=== PATIENT | male | born 1935 | race Hispanic/Latino ===

== ENCOUNTER 2016-09-26 16:34 | Outpatient (CLI) | payer MEDICARE, OTHER ==
--- NOTE | 2016-09-27 10:25 | XRay Report ---
LUMBAR SPINE WITH OBLIQUES AND FLEXION-EXTENSION SEVEN VIEWS: 09/26/16 16:34:00 CLINICAL: Lumbar stenosis with neurogenic claudication. FINDINGS: Levoscoliosis centered at L3-4. Grade I L2-3 retrolisthesis is identified in neutral as well as flexed and extended positions. On the AP view, grade I right lateral listhesis at L3-4. Disc space narrowing with anterior-posterior osteophytes and endplate sclerosis at L2-3 and L1-2. Mild anterior T12 wedge compression fracture with no fracture lines identified. Large lateral osteophytes at T12-L1 and on the left at L2-3, L3-4 and L4-5. Severe multilevel bilateral neural foraminal stenosis on oblique views. Multilevel facet joint sclerosis. There is an IVC filter. Mild calcification of the abdominal aorta and iliac arteries. IMPRESSION: Scoliosis and extensive multilevel degenerative disc disease.Grade I L2-3 retrolisthesis with no instability on flexion and extension. Grade I right lateral listhesis at L3-4. Extensive multilevel facet joint arthropathy and multilevel neural foraminal stenosis. A probably chronic T12 anterior wedge compression fracture.
--- NOTE | 2016-09-28 10:51 | Magnetic Resonance Report ---
MRI LUMBAR SPINE WITHOUT CONTRAST: 09/26/16 CLINICAL: Lumbar Stenosis. COMPARISON: 12/06/13 CT lumbar spine TECHNIQUE: Sagittal and axial T1 and T2, and sagittal STIR sequences on a 1.5 Juliet magnet without contrast. FINDINGS: Grade I L2-3 retrolisthesis and grade I L5-S1 retrolisthesis. Status post midline posterior decompression and laminectomy from L1 to through L4. The conus medullaris is normal and terminates at L1. L1-2: Degeneration of the disc and mild circumferential disc bulge. Large anterior osteophyte and minimal posterior osteophyte. Irregularity of the inferior L1 and superior L2 endplates with mild Modic signal changes. Moderate left and mild right neural foraminal stenosis. L2-3: Degeneration of the disc with narrowing of the disc space and large anterior osteophyte. Grade I L2-3 retrolisthesis. Bilateral facet hypertrophy. Marked right neural foraminal stenosis and moderate left neural foraminal stenosis secondary to osteophytes and facet hypertrophy. L3-4: Moderate circumferential disc bulge. Bilateral facet hypertrophy and marked bilateral neural foraminal stenosis secondary to facet hypertrophy and osteophytes. L4-5: Degeneration of the disc and a small posterior central osteophyte. Bilateral facet hypertrophy and marked bilateral neural foraminal stenosis secondary to facet hypertrophy and osteophytes. L5-S1: Mild circumferential disc bulge. Bilateral facet hypertrophy and marked bilateral neural foraminal stenosis secondary to facet hypertrophy and osteophytes. IMPRESSION: 1. Status post midline posterior decompression and laminectomy from L1 to through L4. Minimal postsurgical scar. 2. Multilevel neural foraminal stenosis secondary to facet hypertrophy and osteophytes. 3. No central canal stenosis.
== END 2016-09-26 16:35 | disposition home or self-care (01) ==
LOC: MRI 16:34
PROVIDERS: ATTEND Neurological Surgery
DX: M48.06 Spinal stenosis, lumbar region (principal); M48.54XA Collapsed vertebra, not elsewhere classified, thoracic region, initial encounter for fracture; M25.78 Osteophyte, vertebrae; I73.9 Peripheral vascular disease, unspecified; M51.36 Other intervertebral disc degeneration, lumbar region; M41.86 Other forms of scoliosis, lumbar region; M12.88 Other specific arthropathies, not elsewhere classified, other specified site; I10 Essential (primary) hypertension; E78.00 Pure hypercholesterolemia, unspecified; F32.9 Major depressive disorder, single episode, unspecified; D64.9 Anemia, unspecified
CPT/HCPCS: 36415; 72114; 72148; 82565; 84520

== ENCOUNTER 2019-04-11 09:55 | Outpatient (CLI) | payer MEDICARE, OTHER ==
[2019-04-11 10:48] LABS: Basophils # (Auto) 0.1 K/mm3 (0.0-0.1); Basophils % (Auto) 0.8 % (0.0-1.8); Eosinophils # (Auto) 0.7 K/mm3 (0.0-0.4); Eosinophils % (Auto) 8.3 % (0.0-4.3); Hematocrit 33.3 % (35.5-45.6); Lymphocytes # (Auto) 2.2 K/mm3 (1.2-5.4); Lymphocytes % (Auto) 26.9 % (13.4-35.0); Mean Corpuscular HGB Conc 33 % (32-34); Mean Corpuscular Volume 97 fl (84-94); Monocytes # (Auto) 0.8 K/mm3 (0.0-0.8); Monocytes % (Auto) 9.8 % (0.0-7.3); Platelet Count 297 K/mm3 (140-440); Red Blood Count 3.42 M/mm3 (3.65-5.03); Red Cell Distribution Width 15.2 % (13.2-15.2)
[2019-04-11 11:00] LABS: INR 1.81 (0.87-1.13); Partial Thromboplastin Time 38.7 Sec. (24.2-36.6)
[2019-04-11 11:12] LABS: Albumin 3.7 g/dL (3.9-5); Calcium 9.1 mg/dL (8.4-10.2)
--- NOTE | 2019-04-11 11:25 | XRay Report ---
CHEST 2 VIEWS INDICATION: Z01.810 ENCOUNTER FOR PREPROCEDURAL CARDIOVASCULAR EXAM. COMPARISON: None FINDINGS: Support devices: Thoracic stimulator device terminates near the level of T8. Heart: Within normal limits. Lungs/pleura: No acute air space or interstitial disease. No pneumothorax. Additional findings: None. IMPRESSION: No acute findings. Signer Name: Sridhar Hi Jr, MD Signed: 04/11/2019 11:21 AM Workstation Name: [id number]
[2019-04-14 11:11] LABS: Vitamin D, 25-OH, D2 36 ng/mL
== END 2019-04-11 09:56 | disposition home or self-care (01) ==
LOC: XRAY 09:55
PROVIDERS: ATTEND Internal Medicine
DX: Z01.810 Encounter for preprocedural cardiovascular examination (principal); R79.1 Abnormal coagulation profile
CPT/HCPCS: 36415; 71046; 80053; 82306; 82607; 85025; 85610; 85730

== ENCOUNTER 2019-08-18 10:40 | Outpatient (CLI) | payer MEDICARE, OTHER ==
[2019-08-18 11:17] LABS: Basophils # (Auto) 0.1 K/mm3 (0.0-0.1); Basophils % (Auto) 0.6 % (0.0-1.8); Eosinophils # (Auto) 0.4 K/mm3 (0.0-0.4); Eosinophils % (Auto) 4.4 % (0.0-4.3); Hematocrit 47.1 % (35.5-45.6); Hemoglobin 15.5 gm/dl (11.8-15.2); Lymphocytes # (Auto) 2.3 K/mm3 (1.2-5.4); Mean Corpuscular HGB Conc 33 % (32-34); Mean Corpuscular Volume 99 fl (84-94); Monocytes # (Auto) 0.6 K/mm3 (0.0-0.8); Monocytes % (Auto) 7.4 % (0.0-7.3); Platelet Count 258 K/mm3 (140-440); Red Blood Count 4.76 M/mm3 (3.65-5.03); Red Cell Distribution Width 14.8 % (13.2-15.2)
[2019-08-18 11:27] LABS: INR 1.87 (0.87-1.13)
[2019-08-18 11:28] LABS: Partial Thromboplastin Time 35.1 Sec. (24.2-36.6)
--- NOTE | 2019-08-18 11:46 | XRay Report ---
CHEST 2 VIEWS INDICATION / CLINICAL INFORMATION: ENCOUNTER FOR PREPROCEDURAL CARDIOVASCULAR EXAMINATION. COMPARISON: 04/11/2019 FINDINGS: SUPPORT DEVICES: None. HEART / MEDIASTINUM: No significant abnormality. LUNGS / PLEURA: No significant pulmonary or pleural abnormality. No pneumothorax. ADDITIONAL FINDINGS: No significant additional findings. IMPRESSION: 1. No acute findings. Signer Name: Coy Steve MD Signed: 08/18/2019 11:42 AM Workstation Name: [id number]
[2019-08-18 11:52] LABS: Calcium 9.9 mg/dL (8.4-10.2); Chol/HDL Ratio 3.25 %
== END 2019-08-18 10:41 | disposition home or self-care (01) ==
LOC: XRAY 10:40
PROVIDERS: ATTEND Internal Medicine
DX: Z01.810 Encounter for preprocedural cardiovascular examination (principal); I26.99 Other pulmonary embolism without acute cor pulmonale
CPT/HCPCS: 36415; 71046; 80053; 80061; 83036; 84443; 85025; 85610; 85730

== ENCOUNTER 2019-10-03 10:58 | Outpatient (CLI) | payer MEDICARE, OTHER ==
--- NOTE | 2019-10-07 17:34 | Mammography Report ---
DEXA BONE DENSITY SCAN INDICATION / CLINICAL INFORMATION: DISC DEGENERATION. 83 years Male COMPARISON: None available. LUMBAR SPINE, L1-L4: - Bone mineral density (BMD) = 1.442 g/cm2. - T-score = 3.2 - Z-score = 4.4 Spine density may be artificially elevated by degenerative sclerosis. LEFT HIP, NECK : - Bone mineral density (BMD) = 0.678 g/cm2. - T-score = -1.9 - Z-score = -0.3 Change (%) since most recent prior (if available): None available. 10-YEAR FRACTURE RISK (FRAX) (%) based on LEFT FEMUR - Major Osteoporotic Fracture / Hip Fracture: 7.9% / 3.1% IMPRESSION: 1. WHO Classification: Osteopenia. Fracture Risk: Increased. BMD Reporting Guidelines (ISCD, 2015) BMD Reporting in Postmenopausal Women and in Men Age 50 and Older - T-scores are preferred. - The WHO densitometric classification is applicable. BMD Reporting in Females Prior to Menopause and in Males Younger Than Age 50 - Z-scores, not T-scores, are preferred. This is particularly important in children. - A Z-score of -2.0 or lower is defined as below the expected range for age, and a Z-score above -2.0 is within the expected range for age. - Osteoporosis cannot be diagnosed in men under age 50 on the basis of BMD alone. - The WHO diagnostic criteria may be applied to women in the menopausal transition. http://www.iscd.org/official-positions/6034-rlal-qwvemqyp-positions-adult/ Signer Name: Mc Rosales MD Signed: 10/07/2019 5:29 PM Workstation Name: [email or web address]
== END 2019-10-03 10:59 | disposition home or self-care (01) ==
LOC: MAMMO 10:58
PROVIDERS: ATTEND Internal Medicine
DX: M51.36 Other intervertebral disc degeneration, lumbar region (principal); M85.88 Other specified disorders of bone density and structure, other site
CPT/HCPCS: 77080

== ENCOUNTER 2020-02-01 09:38 | Outpatient (CLI) | payer MEDICARE, OTHER ==
[2020-02-01 10:44] LABS: Basophils % (Auto) 0.5 % (0.0-1.8); Eosinophils # (Auto) 0.1 K/mm3 (0.0-0.4); Hematocrit 35.9 % (35.5-45.6); Hemoglobin 12.2 gm/dl (11.8-15.2); Lymphocytes # (Auto) 1.8 K/mm3 (1.2-5.4); Lymphocytes % (Auto) 16.8 % (13.4-35.0); Mean Corpuscular HGB Conc 34 % (32-34); Mean Corpuscular Volume 92 fl (84-94); Monocytes # (Auto) 0.8 K/mm3 (0.0-0.8); Monocytes % (Auto) 7.2 % (0.0-7.3); Platelet Count 233 K/mm3 (140-440); Red Blood Count 3.92 M/mm3 (3.65-5.03); Red Cell Distribution Width 16.6 % (13.2-15.2)
[2020-02-01 11:02] LABS: BUN/Creatinine Ratio 24; Blood Urea Nitrogen 26 mg/dL (9-20); Calcium 9.5 mg/dL (8.4-10.2); Hemolysis Index 2; Iron 38 ug/dL (49-181)
== END 2020-02-01 09:39 | disposition home or self-care (01) ==
LOC: LAB 09:38 → EDSTATUS 09:44
PROVIDERS: ATTEND Internal Medicine
DX: D64.9 Anemia, unspecified (principal); R94.6 Abnormal results of thyroid function studies; R73.03 Prediabetes
CPT/HCPCS: 36415; 80048; 82728; 83540; 84443; 85025